=== PATIENT | male | born 1995 | race Caucasian/White ===

== ENCOUNTER 2020-10-24 20:18 | Emergency (ER) | payer BC ==
--- NOTE | 2020-10-24 20:21 | EDM.PDOC ---
ED HPI GENERAL MEDICAL PROBLEM - General Chief Complaint: Upper Extremity Injury/Pain Stated Complaint: CUT FINGER Time Seen by Provider: 10/24/20 20:19 Source of Information: Reports: Patient History Limitations: Reports: No Limitations - History of Present Illness INITIAL COMMENTS - FREE TEXT/NARRATIVE: HISTORY AND PHYSICAL: History of present illness: Patient is a 25-year-old male who presents to the emergency room with complaints of a crush injury to his right fifth digit. He states he was helping a friend with a transmission when the transmission had fallen on his finger. He does have an open laceration to the pad of the distal fifth digit, no active bleeding. This does not involve the nailbed. He denies any other extremity involvement. He is unsure of his last tetanus update. Review of systems: As per history of present illness and below otherwise all systems reviewed and negative. Past medical history: As per history of present illness and as reviewed below otherwise noncontributory. Surgical history: As per history of present illness and as reviewed below otherwise noncontributory. Social history: See social history for further information Family history: As per history of present illness and as reviewed below otherwise noncontributory. Physical exam: General: Well developed and well nourished 25 year old male. Alert and orientated x 3. Nontoxic in appearance and in no acute distress. Vital signs are stable and have been reviewed by me. Nursing notes were reviewed. HEENT: Atraumatic, normocephalic, pupils equal and reactive bilaterally, negative for conjunctival pallor or scleral icterus, mucous membranes moist, trachea midline. No drooling or trismus noted. No meningeal signs. No hot potato voice noted. Lungs: Clear to auscultation bilaterally. No wheezes, rales, or rhonchi. Chest nontender. Normal work of breathing, no accessory muscles used. Heart: S1S2, regular rate and rhythm without overt murmur, gallops, or rubs. No JVD. No peripheral edema Abdomen: Soft, nondistended, nontender. Skin: 1 cm laceration to the pad of the distal right fifth digit. This does not involve the nailbed. There is exposed tissue. Remaining skin is intact, warm, dry. No lesions or rashes noted. Hematologic: No petechiae or purpra. Mucosa appropriate color and normal nail bed color and refill. Extremities: Crush injury of the right fifth digit, he moves all extremities per self without difficulty or deficits. Cap refill less than 3 seconds. Neurovascular unremarkable. Neuro: Awake, alert, oriented. Cranial nerves II through XII unremarkable. Cerebellum unremarkable. Motor and sensory unremarkable throughout. Exam nonfocal. Psychiatric: Mood and affect are appropriate. Normal thought process. Answering questions appropriately. Notes: *This patient was seen and evaluated during the 2019 SARS-CoV-2 novel coronavirus pandemic period. Community viral transmission is ongoing at time of this encounter and the emergency department is operating under pandemic response procedures. Patient is a 25-year-old male who presents to the emergency room with complaints of a crush injury to the right fifth digit resulting in a laceration. Patient is unsure of his last tetanus update. He does not want any stitches at this time and is requesting that it gets glued shut. After some education he is agreeable to an x-ray. We will update his tetanus as well. Area was thoroughly cleansed with chlorhexidine and wound wash. I was able to put a Steri-Strip across the laceration and Dermabond the area closed, per patient request. We discussed signs and symptoms of infection that would require him to return to the emergency room or follow-up with his primary care provider as I do not feel he needs any antibiotics at this time. I have talked with the patient about today's findings, in addition to providing specific details for plan of care. Reassessment at the time of disposition demonstrates that the patient is in no acute distress. The patient is stable for discharge, counseling was provided and we discussed in great detail signs and symptoms that would prompt them to return to the Emergency Department. Medication, follow up and supportive care measures were reviewed and discussed. Voices understanding and is agreeable to plan of care. Denies any further questions or concerns at this time. Diagnostics: X-ray Therapeutics: Dermabond, Tdap Prescription: None Impression: Crush injury, finger Laceration, finger Plan: 1. You were evaluated today on an emergent basis. Your x-ray shows no fracture. Please leave the Dermabond glue on, do not pull this off. It will fall off on its own. 2. You can alternate Tylenol and ibuprofen as needed for pain and fever management. 3. We encourage you to follow up with your primary care provider and/or recommended specialist in the next few days for re-evaluation and further care/management. 4. If your symptoms should worsen, new symptoms develop or any of the signs and symptoms we discussed should arise please return to the emergency room or call 911 (if needed). Definitive disposition and diagnosis as appropriate pending reevaluation and review of above. Right Finger-Index Pain Score (Numeric/FACES): 3 - Related Data Allergies Allergy/AdvReac Type Severity Reaction Status Date / Time Penicillins Allergy Hives Verified 10/24/20 20:34 Home Meds: Home Meds . [No Known Home Meds] 10/24/20 [History] Review of Systems - Review of Systems Review Of Systems: Comprehensive ROS is negative, except as noted in HPI. ED EXAM, GENERAL - Physical Exam Exam: See Below (See dictation) ED TRAUMA EXTREMITY PROCEDURES - Laceration/Wound Repair right 5th digit Lac/Wound Length In cm: 1 Appearance: Subcutaneous, Linear, Clean Skin Prep: Chlorhexidine (Hibiciens), Saline Saline Irrigation (cc's): 250 Exploration/Debridement/Repair: Wound Explored, In a Bloodless Field, Explored to Base, No Foreign Material Found Closed With: Dermabond Drain Placement: No Sterile Dressing Applied: None Tetanus Status Addressed: Yes Complications: No Course - Vital Signs Last Recorded V/S: Last Vital Signs Temp 96.0 F L 10/24/20 20:21 Pulse 68 10/24/20 20:21 Resp 16 10/24/20 20:21 BP 147/78 H 10/24/20 20:21 Pulse Ox 97 10/24/20 20:21 - Orders/Labs/Meds Orders: Active Orders 24 hr Category Date Time Status Communication Order [RC] STAT Care 10/24/20 20:31 Active Vaccines to be Administered [RC] PER UNIT ROUTINE Care 10/24/20 20:30 Active Fingers Fifth Digit Rt F9 [CR] Stat Exams 10/24/20 20:29 Taken Meds: Medications Discontinued Medications Generic Name Dose Route Start Last Admin Trade Name Freq PRN Reason Stop Dose Admin Diphtheria/Tetanus/Acell Pertussis 0.5 ml 10/24/20 20:29 10/24/20 20:40 Diphtheria,Pertussis(Acell),Tetanus Vaccine 0.5 Ml Syringe IM 10/24/20 20:30 0.5 ml .ONCE ONE Administration Octyl Cyanoacrylate 1 applic 10/24/20 20:29 10/24/20 20:41 Octyl 2-Cyanoacrylate 1 Tube TOP 10/24/20 20:30 1 applic ONETIME ONE Administration Departure - Departure Time of Disposition: 20:54 Disposition: Home, Self-Care 01 Clinical Impression: Crush injury, Laceration - Discharge Information Instructions: Crush Injury of the Hand, [id number] Referrals: PCP,None [Primary Care Provider] - Forms: ED Department Discharge Additional Instructions: The following information is given to patients seen in the emergency department who are being discharged to home. This information is to outline your options for follow-up care. We provide all patients seen in our emergency department with a follow-up referral. The need for follow-up, as well as the timing and circumstances, are variable depending upon the specifics of your emergency department visit. If you don't have a primary care physician on staff, we will provide you with a referral. We always advise you to contact your personal physician following an emergency department visit to inform them of the circumstance of the visit and for follow-up with them and/or the need for any referrals to a consulting specialist. The emergency department will also refer you to a specialist when appropriate. This referral assures that you have the opportunity for follow-up care with a specialist. All of these measure are taken in an effort to provide you with optimal care, which includes your follow-up. Under all circumstances we always encourage you to contact your private physician who remains a resource for coordinating your care. When calling for follow-up care, please make the office aware that this follow-up is from your recent emergency room visit. If for any reason you are refused follow-up, please contact the [facility] Emergency Department at and asked to speak to the emergency department charge nurse. [facility] [address] [place] [id number] [address] Thank you for choosing the [facility] emergency department in [place] for your medical needs today. It was a pleasure caring for you. Today you were seen in the emergency department for crush injury of finger. 1. You were evaluated today on an emergent basis. Your x-ray shows no fracture. Please leave the Dermabond glue on, do not pull this off. It will fall off on its own. 2. You can alternate Tylenol and ibuprofen as needed for pain and fever management. 3. We encourage you to follow up with your primary care provider and/or recommended specialist in the next few days for re-evaluation and further care/management. 4. If your symptoms should worsen, new symptoms develop or any of the signs and symptoms we discussed should arise please return to the emergency room or call 911 (if needed). Sepsis Event Note (ED) - Focused Exam Vital Signs: Vital Signs Temp Pulse Resp BP Pulse Ox 10/24/20 20:21 96.0 F L 68 16 147/78 H 97 - My Orders Last 24 Hours: My Active Orders 10/24/20 20:29 Fingers Fifth Digit Rt F9 [CR] Stat 10/24/20 20:30 Vaccines to be Administered [RC] PER UNIT ROUTINE 10/24/20 20:31 Communication Order [RC] STAT - Assessment/Plan Last 24 Hours: My Active Orders 10/24/20 20:29 Fingers Fifth Digit Rt F9 [CR] Stat 10/24/20 20:30 Vaccines to be Administered [RC] PER UNIT ROUTINE 10/24/20 20:31 Communication Order [RC] STAT
[2020-10-24] MEDS ORDERED: Octyl 2-Cyanoacrylate 1 Tube TOP ONE (20:29)
[2020-10-24] MEDS ORDERED: Diphtheria,Pertussis(Acell),Tetanus Vaccine 0.5 ML Syringe IM ONE (20:29)
--- NOTE | 2020-10-24 21:17 | CR ---
HISTORY: Crush injury. Open laceration. COMPARISON: None available. FINDINGS: The right 5th finger is examined with PA, lateral, and oblique views. There is no sign of fracture or dislocation. There is irregularity and swelling of the soft tissues at the tip of the finger consistent with a history of crush injury. There is no sign of any radiopaque foreign body or gas in the soft tissue. No degenerative disease is seen. IMPRESSION: No sign of acute osseous injury. Soft tissue swelling and irregularity of the tip finger consistent with crush injury. Dictated by Brian Li MD @ 10/24/2020 9:16:[address] Brian Li @ Oct 24 2020 9:16PM
== END 2020-10-24 21:12 | disposition home or self-care (01) ==
LOC: MW.ED 20:18
DX: S67.196A Crushing injury of right little finger, initial encounter (principal); S61.216A Laceration without foreign body of right little finger without damage to nail, initial encounter; Z88.0 Allergy status to penicillin; Z23 Encounter for immunization; W23.0XXA Caught, crushed, jammed, or pinched between moving objects, initial encounter
CPT/HCPCS: 12001; 73140; 90471; 90715; 99283; A9270